=== PATIENT | female | born 1950 | race Caucasian/White ===

== ENCOUNTER 2018-10-05 11:36 | Day surgery (SDC) | payer OTHER ==
[~2018-10-05] VITALS: Ht 160 cm; Wt 72.7 kg
[~2018-10-05 11:36] MED LIST: CALCIUM 500 +1 EAC2 PO; FISH OIL 1,0001 EAC1 PO; MSM500 MG PO; MULTI VITAMIN1 EACH PO; OMEPRAZOLE MAGN20 MG PO; SIMV40 PO; VALA500 PO; VOLTAREN100 GM TOP
== END 2018-10-05 13:38 | disposition home or self-care (01) ==
LOC: ORSCSDS 11:36
PROVIDERS: Internal Medicine Gastroenterology
PROC: 0DBL8ZX Excision of Transverse Colon, Via Natural or Artificial Opening Endoscopic, Diagnostic (ICD-10-PCS; principal; 2018-10-05 13:00)
DX: Z12.11 Encounter for screening for malignant neoplasm of colon (principal); D12.3 Benign neoplasm of transverse colon; K57.30 Diverticulosis of large intestine without perforation or abscess without bleeding; E78.5 Hyperlipidemia, unspecified; Z79.899 Other long term (current) drug therapy
CPT/HCPCS: 88305; J2704; J7120